=== PATIENT | male | born 1970 | race Caucasian/White ===

== ENCOUNTER 2019-12-21 15:05 | Outpatient (RCR) | payer OTHER, SELFPAY ==
[2019-11-16 15:55] VITALS: BMI 26.0
--- NOTE | 2019-12-21 15:58 | HP.PTEVAL ---
Patient's Visit Information TERESSA GOODE is a 49 year old M referred to Physical Therapy by NUVIA Vieira with a diagnosis of L shoulder pain. Date of Evaluation: 12/21/19 Physical Therapist: Steve Lord, UTET, OCS, CSCS - Visit Plan Frequency: 2-3x /Week Duration: 2-4 Weeks Plan: weekly x 4 weeks as needed and possibly increasing frequency if not improving. Progress c/s ROM, ext mobs, may need L rotation then remodelling and strength posture/neck. Monitor deviation R with ext, rotation adn ext ROM and pain. May need mobs and STM/ESTIM if not improving. - Subjective L shoulder hurts for unknown reason. It is posterior adn shoots down arm to elbow and into neck. Has neck stiffness for a long time. Shoulder hurts for a couple weeks insidously. Pain gets to 8/10 constant. Every now and then will stop hurting for short period of time. Always hurts at works. 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 L arm feels weak. No numbness or tingling. Sleep is not great, last two days were rough adn 1-2 hours at a time. Basic aDLs are getting done. No hobbies other than work. - Pain L shoulder pain/neck Pain Intensity (Out of 10): 7 Pain Intensity Range: 7, 8 - Objective Posture is forward head and scapula. UE AROM WFL and without pain. C//S AROM ext 30 and deviaties R, rotation L 35 and R 60, pain L. SB L painful and 10 vs 25 R. Felxion full. strength UE 5/5 without increased pain. reflexes 2/3 bi and triceps. Sensation UE WNL to gross light touch. + c/s compression especially with L SB. Repeated motion testing :08/15 baseline L neck posterior shoulder. protrusion Slight centralize. c/s flexion x10: better during movement. W 7-8 /10. retraction...PDM /, B. overalla nd centralizing. L rotation, PDM worse ext adn increased pain. R rotation W. SB L: W. c/s retraction ext: W - Goals Goal 1:: Full cervical AROM without pain to see in car better Goal Time Frame: 2-4 Weeks Goal 2:: Pt feel pain 90% better adn 1/10 at worst Goal Time Frame: 2-4 Weeks Goal 3:: I appropr HEp to minimize future problems Goal Time Frame: 2-4 Weeks Goal 4:: Sleep without waking at night or interruption Goal Time Frame: 2-4 Weeks - Rehabilitation Potential Physical Therapy Diagnosis: L cervical radicuopathy, discal pathology Rehabilitation Potential: Fair - Anticipated Interventions Patient/Client Instruction: Educate patient on: Condition, Plan of Care For the Purpose of:: To decrease pain, To decrease swelling/inflammation, To increase ROM, To increase tolerance to activity/condition/position, To improve ability of physical actions for home/community/work/leisure Therapeutic Exercise to Include: Strength training, Passive ROM, Active ROM, Kasi Exercises, Scapular Strength/Stabilization For the Purpose of:: To decrease pain, To increase ROM, To improve muscle performance and motor function, To increase tolerance to activity/condition/position Manual Therapy Techniques to Include: Mobilization, Passive ROM, Soft tissue mobilization For the Purpose of:: To decrease pain, To increase ROM TENS: Yes Cryotherapy (ice pack, ice massage): Yes For the Purpose of:: To decrease pain Thank you for the opportunity to evaluate your patient. For Medicare and Medicare HMO plans, please review the plan of care and approve it. It will need to be FAXED BACK to us at [phone] for Medicare purposes. For Medicare only, by signing this I certify the plan of care. Please let me know if there are questions or concerns regarding this plan of care. Physician Signature: Date:
--- NOTE | 2020-02-13 17:35 | HP.PT.NRP ---
TERESSA GOODE was seen in my office for initial evaluation on 12/21/19. The following Plan of Care was established for this patient: Initial Frequency: 2-3x /Week Initial Duration: 2-4 Weeks Patient/Client Instruction: Educate patient on: Condition, Plan of Care For the Purpose of:: To decrease pain, To decrease swelling/inflammation, To increase ROM, To increase tolerance to activity/condition/position, To improve ability of physical actions for home/community/work/leisure Therapeutic Exercise to Include: Strength training, Passive ROM, Active ROM, Kasi Exercises, Scapular Strength/Stabilization For the Purpose of:: To decrease pain, To increase ROM, To improve muscle performance and motor function, To increase tolerance to activity/condition/position Manual Therapy Techniques to Include: Mobilization, Passive ROM, Soft tissue mobilization For the Purpose of:: To decrease pain, To increase ROM TENS: Yes Cryotherapy (ice pack, ice massage): Yes For the Purpose of:: To decrease pain This patient was last seen in our office 12/21/19. Pertinent comments regarding their Physical therapy will appear below: Pt seen for initial evaluation and HEP. POC established but patient cancelled all visits. at this point, it has been over 6 weeks and I will discontinue due to nonattendance. At this point I will be discontinuing this patient from physical therapy. I would be happy to see this patient again in the future if found appropriate by the physician. Thank you! Steve Lord, DPT, OCS, CSCS
== END 2019-12-21 19:00 | disposition home or self-care (01) ==
LOC: PT 15:05
PROVIDERS: Referring Provider Physician Assistant Surgical; Visit Provider Physician Assistant Surgical
DX: M25.512 Pain in left shoulder (principal); G89.29 Other chronic pain
CPT/HCPCS: 97110; 97162